=== PATIENT | male | born 1950 | race Caucasian/White ===

== ENCOUNTER → 2018-02-14 | Outpatient (CLI) | payer MEDICARE ==
[2015-02-10 08:59] VITALS: BMI 32.5
[~2018-02-14] MED LIST: ACET-1966 PO; ALBU8.5H12 IH; AMPI250C65 PO; ASPI-1471 PO; B12/1TAB PO; BENZ1 PO; BUDE10.25 IH; CEPH-13 PO; CEPH250C37 PO; CHOL100059 PO; CIPR-344 PO; CIPR500S3 PO; DOCU-416 PO; FAMO20TA28 PO; FOLI-68 PO; HALO5AMP5 IJ; HALO5TAB17 PO; HYDR-389 PO; HYDR-653 PO; HYOS-49 PO; IBUP600T22 PO; LOPE2CAP88 PO; MINE473O17 PO; MOM PO; MULT-865 PO; OLAN10TA25 PO; OLAN15TA23 PO; OLAN20TA18 PO; OLAN5TAB25 PO; OMEG500C5 PO; OXYC-865 PO; PHEN200T32 PO; POLY119P24 PO; POLY17PO25 PO; PROM-110 PO; SENN-72 PO; TAMS0.4C25 PO; Tamsulosin Hcl PO; VITA1CAP52 PO
== END ==
LOC: US 13:47
PROVIDERS: ATTEND Internal Medicine Cardiovascular Disease
DX: I35.0 Nonrheumatic aortic (valve) stenosis (principal); I51.7 Cardiomegaly; I35.1 Nonrheumatic aortic (valve) insufficiency
CPT/HCPCS: 93306

== ENCOUNTER → 2018-03-15 | Outpatient (CLI) | payer MEDICARE ==
[2015-02-10 08:59] VITALS: BMI 32.5
== END ==
LOC: US 00:28
PROVIDERS: ATTEND Internal Medicine Cardiovascular Disease
DX: I51.7 Cardiomegaly (principal); Z95.3 Presence of xenogenic heart valve
CPT/HCPCS: 36415; 82310; 82374; 82435; 82565; 82947; 84132; 84295; 84520; 85027; 93306